=== PATIENT | male | born 1980 | race American Indian/Alaskan Native ===

== ENCOUNTER 2019-05-08 09:19 | Emergency (ER) | payer MEDICAID ==
[2019-05-08 09:37] VITALS: BP 111/72
--- NOTE | 2019-05-08 10:06 | Emergency Department Report ---
Chief Complaint: Urogenital-Male Stated Complaint: POSS STI Time Seen by Provider: 05/08/19 09:38 - HPI History of Present Illness: This is a 39-year-old male nontoxic, well nourished in appearance, no acute signs of distress presents to the ED for STD check. Patient denies any penile discharge. Patient denies any testicular pain or swelling. Patient denies any penile ulcers or lesions. Patient denies any nausea, vomiting, chest pain, shortness of breathe, fever, chills, headache, back pain, numbness, tingling, stiff neck. Patient denies any urinary symptoms. Patient denies any allergies or PMH. - Exam Vital Signs: Vital Signs 05/08/19 09:35 Temperature 98.6 F Pulse Rate 78 Respiratory 18 Rate Blood Pressure 111/72 O2 Sat by Pulse 99 Oximetry Physical Exam: No abdominal pain. No testicular pain. No back pain. No urinary symptoms. MSE screening note: Focused history and physical exam performed. Due to findings the following was ordered: ED Medical Decision Making - Medical Decision Making This is a 39-year-old male that presents with nonmedical emergency. Patient is stable and was examined by me. Patient is asymptomatic and denies any symptoms. Patient states he just wants to be tested for STD. [employer] has approached patient for a co-pay but patient refused. I will refer the patient [facility] and health Department. At time of discharge, the patient does not seem toxic or ill in appearance. No acute signs of distress noted. Patient agrees to discharge treatment plan of care. No further questions noted by the patient. ED Disposition for MSE Clinical Impression: Possible exposure to STD Disposition: Z-07 MED SCREENING EXAM-LEFT Is pt being admited?: No Does the pt Need Aspirin: No Condition: Stable Instructions: Safe Sex (ED) Additional Instructions: Follow-up with a primary care doctor [facility], in 3-5 days or if symptoms worsen and continue return to emergency room as soon as possible. Referrals: JONAS SANTOS MD [Primary Care Provider] - 3-5 Days LUIS LOFTON MD [Staff Physician] - 3-5 Days [facility] [Outside] - 3-5 Days [facility] [Outside] - 3-5 Days
[2019-05-08] MEDS ORDERED: CALCIUM CHLORIDE IV ONE (22:19)
[2019-05-08] MEDS ORDERED: SODIUM BICARBONATE PEDIATRIC ONE (22:19)
== END 2019-05-08 10:05 | disposition left against medical advice (07) ==
LOC: ED 09:19
DX: Z20.2 Contact with and (suspected) exposure to infections with a predominantly sexual mode of transmission (principal)
CPT/HCPCS: 99281